=== PATIENT | male | born 1960 | race Caucasian/White ===

== ENCOUNTER 2021-12-02 12:36 | Outpatient (CLI) | payer BC, SELFPAY ==
--- NOTE | 2021-12-02 12:48 | MR_ITS ---
WS: [id number] MRI LEFT KNEE HISTORY: ACUTE PAIN OF L KNEE COMPARISON: 10/24/2021 Anterior cruciate ligament: Mild mucoid degeneration. No tear. Posterior cruciate ligament: Intact. Medial collateral ligament: Increased T2 signal surrounding the MCL. Partial tear in the mid to dista l MCL. Posterior lateral corner structures: Intact. Medial menisci: Intrasubstance degeneration in the posterior horn with a tear extending to the inferi or articular surface. There is also a radial tear through the body of the meniscus. Lateral meniscus: Intact. Normal signal, size and shape. Extensor mechanism: Distal quadriceps tendon and patellar tendons are intact. Fluid and soft tissue: Small suprapatellar joint effusion. No López's cyst. Osseous and articular structures: Patellofemoral compartment: Mild chondromalacia in the medial patellar facet. Medial compartment: Mild narrowing of the medial compartment. Small amount of marrow edema in the tib ial plateau. Moderate chondromalacia along the weightbearing surface of the femoral condyle and tibia l plateau. Lateral compartment: Mild narrowing of the joint space. Mild chondromalacia weightbearing surface tib ial plateau. MR/MR knee LT wo con* [id number] IMPRESSION: 1. Moderate sprain MCL. 2. Intrasubstance degeneration throughout the posterior horn medial meniscus w ith a radial tear in the body and an additional horizontal tear suspected exten ding to the intra-articular surface. 3. Small joint effusion. 4. Moderate chondromalacia medial compartment with a small amount of marrow ed javier in the medial tibial plateau. 5. Mild chondromalacia medial patellar facet and lateral tibial plateau.
== END 2021-12-02 12:37 | disposition home or self-care (01) ==
LOC: RAD 12:36
PROVIDERS: PCP Nurse Practitioner Family; Visit Provider Nurse Practitioner Family
DX: S83.512A Sprain of anterior cruciate ligament of left knee, initial encounter (principal); S83.282A Other tear of lateral meniscus, current injury, left knee, initial encounter; M22.42 Chondromalacia patellae, left knee; X58.XXXA Exposure to other specified factors, initial encounter
CPT/HCPCS: 73721

== ENCOUNTER → 2024-07-30 12:34 | Outpatient (BNVA) | payer OTHER, SELFPAY | PROVIDERS: PCP Nurse Practitioner Family; Visit Provider Emergency Medicine | DX: R39.9 Unspecified symptoms and signs involving the genitourinary system (principal) | CPT/HCPCS: 81000 ==

== ENCOUNTER 2025-01-24 12:11 | Emergency (ER) | payer OTHER, SELFPAY ==
[2025-01-24 12:22] VITALS: BP 146/94; PULSE 92; RESP 16; TEMP 36.5; O2SAT 98; BMI 31.3
--- NOTE | 2025-01-24 12:35 | ED_ITS ---
HPI - GI Bleed 2 General: Chief complaint: GI Bleed Stated complaint: blood in stool Time Seen by Provider: 01/24/25 12:25 Source: patient Mode of arrival: ambulatory Limitations: no limitations History of Present Illness: Patient is a 64-year-old male who presents to ED today with a complaint of rectal bleeding that he began noticing yesterday and into today. He states bleeding is minimal and a combination of bright red and dark red blood. He is not having any rectal pain. No abdominal pain. He does have a history of diverticulitis as well as hemorrhoids. He has never had to have treatment for his hemorrhoids. He is not complaining of rectal itching. Last colonoscopy was 10 years ago. He has had a Cologuard test within the last several years. He has not noticed any masses or bulges near his rectum. MD complaint: blood streaked stool Onset (ago): day(s) Severity: mild Relieving factors: none Exacerbating factors: bowel movement Context: hemorrhoids Associated symptoms: Reports no associated symptoms; Denies abdominal pain, chills, fever(s), malaise, nausea or vomiting Treatments Prior to Arrival: none Related Data Previous Rx's ?Medication ?Instructions ?Recorded amoxicillin 875 mg-potassium 1 tab PO BID 10 days #20 tabs 07/30/24 clavulanate 125 mg tablet ondansetron HCl 8 mg tablet 8 mg PO Q8H PRN nausea and /or 07/30/24 vomiting #30 tabs Allergies Allergy/AdvReac Type Severity Reaction Status Date / Time No Known Allergies Allergy Verified 07/30/24 11:41 Review of Systems 2 Const: Denies: fever(s), chills, body aches, fatigue or malaise Card: Denies: chest pain Resp: Denies: dyspnea GI: Reports: hematochezia; Denies: abdominal pain, nausea, vomiting, diarrhea, constipation, GI cramping or melena : Denies: flank pain, dysuria or hematuria Musc: Denies: back pain Neuro: Denies: dizziness PFSH ED 2 PFSH: Social History Smoking and tobacco/nicotine status: never used tobacco/nicotine Alcohol intake: never Substance/Drug Use: never Physical Exam 2 Const: COMMON NORMALS: no acute distress, average body habitus, no limitations, healthy appearing, alert and well nourished Resp: COMMON NORMALS: normal respiratory effort and clear to auscultation bilaterally AUSCULTATION: clear to auscultation bilaterally Cardio: COMMON NORMALS: regular rate and regular rhythm RATE: regular rate RHYTHM: regular rhythm GI: COMMON NORMALS: Normal to inspection, nondistended, normoactive bowel sounds present, Soft to palpation, non-tender, No hepatosplenomegaly present and no masses INSPECTION: Yes normal to inspection AUSCULTATION: Yes normoactive bowel sounds PALPATION: Yes Soft to palpation, No Tenderness to palpation present (GI), No Guarding due to palpation present (GI), No Rigid due to palpation and Yes No hepatosplenomegaly present RECTAL EXAM: Yes visual inspection normal, Yes heme positive stool, No hemorrhoids and No Anal fissure(s) present Neuro: SENSORIUM/ORIENTATION: Yes alert Course 2 Vital Signs: Vital signs: Vital Signs Temperature 97.7 F 01/24/25 12:22 Pulse Rate 79 01/24/25 12:59 Respiratory Rate 16 01/24/25 12:22 Blood Pressure 134/88 01/24/25 12:59 Pulse Oximetry 96 01/24/25 12:59 Oxygen Delivery Me thod Room Air 01/24/25 12:22 MDM - GI Bleed Medical Decision Making Patient's vital signs are stable. H&H is normal. Hemoccult was positive. Patient is not complaining of any abdominal or rectal pain. I do not see any reason for emergent CT imaging at this time. Recommend he follow-up with general surgery for further evaluation of rectal bleeding. Return ED precautions discussed. Differential Diagnosis Likely hemorrhoids, Lower gastrointestinal hemorrhage, hematochezia, melena and anal fissure Medical Records I reviewed the patient's medical records. Lab Data I reviewed the patient's lab results. 01/24/25 12:01/24/25 12:33 Laboratory Results WBC 7.00 10^3/uL (3.29-11.43) 01/24/25 12: RBC 4.13 10^6/uL (3.85-5.65) 01/24/25 12:33 Hgb 12.70 g/dL (11.27-16.99) 01/24/25 12:33 Hct 37.9 % (37-53) 01/24/25 12: MCV 91.8 fl (82-101) 01/24/25 12: MCH 30.8 pg (27-33) 01/24/25 12:33 MCHC 33.5 g/dL (30-55) 01/24/25 12:33 RDW 13.4 % (12.1-15.1) 01/24/25 12:33 Plt Count 160 10^3/cmm (157-399) 01/24/25 12:33 MPV 10.2 fL (7.4-10.4) 01/24/25 12:33 Neut % (Auto) 52.7 % 01/24/25 12:33 Lymph % (Auto) 35.4 % 01/24/25 12:33 [place] % (Auto) 5.4 % 01/24/25 12:33 Eos % (Auto) 5.1 % 01/24/25 12:33 Baso % (Auto) 1.1 % 01/24/25 12:33 Neut # (Auto) 3.68 10^3/uL (1.8-7.7) 01/24/25 12:33 Lymph # (Auto) 2.5 10^3/uL (0.8-4.8) 01/24/25 12:33 [place] # (Auto) 0.4 10^3/uL (0.2-0.9) 01/24/25 12:33 Eos # (Auto) 0.4 10^3/uL (0.0-0.8) 01/24/25 12:33 Baso # (Auto) 0.1 10^3/uL (0.0-0.1) 01/24/25 12:33 Nucleated RBC % (auto) 0 % 01/24/25 12:33 Nucleated RBCs # 0.0 /100WBC 01/24/25 12:33 Sodium 138 mmol/L (136-145) 01/24/25 12:33 Potassium 4.3 mmol/L (3.5-5.1) 01/24/25 12:33 Chloride 106 mmol/L (98-107) 01/24/25 12:33 Carbon Dioxide 24 mmol/L (22-29) 01/24/25 12:33 Anion Gap 12.3 (5-19) 01/24/25 12:33 BUN 20 mg/dL (8-23) 01/24/25 12:33 Creatinine 0.8 mg/dL (0.7-1.2) 01/24/25 12:33 GFR Calculation 97.6 mL/min (90-130) 01/24/25 12:33 Glucose 108 mg/dL (65-115) 01/24/25 12:33 Calculated Osmolality 289 mOsm/kg (285-295) 01/24/25 12:33 Calcium 8.7 mg/dL (8.5-10.5) 01/24/25 12:33 Total Bilirubin 0.2 mg/dL (0.15-1.2) 01/24/25 12:33 AST 10 U/L (0-40) 01/24/25 12:33 ALT 10 U/L (0-41) 01/24/25 12:33 Alkaline Phosphatase 77 U/L (40-130) 01/24/25 12:33 Total Protein 6.8 g/dL (6.6-8.7) 01/24/25 12:33 Albumin 4.4 g/dL (3.5-5.2) 01/24/25 12:33 Globulin 2.4 g/dL (1.3-4.6) 01/24/25 12:33 No radiology studies performed this visit Discharge Plan Discharge Patient Disposition: Home Clinical Impression: Rectal bleeding Condition: Stable Prescriptions: No Action amoxicillin-pot clavulanate 875-125 mg tablet 1 tab PO BID 10 Days Qty: 20 0RF ondansetron HCl 8 mg tablet 8 mg PO Q8H PRN (Reason: nausea and/or vomiting) Qty: 30 1RF Discharge Orders: Discharge ED (Routine); Ordered 01/24/25 Ordered By: Bell Sharma Referrals: Martha Nicholas MD [Primary Care Provider, Internal Medicine] Patient Instructions: Patient Portal & Gretel Instructions Activity Restrictions/Additional Instructions: As we discussed, we will have you follow-up with general surgery for further evaluation of rectal bleeding and potential need for repeat colonoscopy. You may return to the emergency department for onset of severe abdominal pain, fevers, generally feeling worse or unwell, or amounts of rectal bleeding, or any other concerns you may have. Print Language: Bruneian Coding Level of Care Code ED Technical Support Professional for Gia Hinds
[2025-01-24 12:42] LABS: Hematocrit 37.9 % (37-53); Hemoglobin 12.70 g/dL (11.27-16.99); Mean Corpuscular HGB Conc 33.5 g/dL (30-55); Mean Corpuscular Hemoglobin 30.8 pg (27-33); Mean Corpuscular Volume 91.8 fl (82-101); Nucleated Red Blood Cells % 0 %; Platelet Count 160 10^3/cmm (157-399); Red Blood Count 4.13 10^6/uL (3.85-5.65); White Blood Count 7.00 10^3/uL (3.29-11.43)
[2025-01-24 12:55] LABS: Alanine Aminotransferase 10 U/L (0-41); Albumin Level 4.4 g/dL (3.5-5.2); Alkaline Phosphatase 77 U/L (40-130); Anion Gap 12.3 (5-19); Aspartate Amino Transferase 10 U/L (0-40); Blood Urea Nitrogen 20 mg/dL (8-23); Calcium 8.7 mg/dL (8.5-10.5); Carbon Dioxide 24 mmol/L (22-29); Chloride 106 mmol/L (98-107); Globulin 2.4 g/dL (1.3-4.6); Glucose 108 mg/dL (65-115); Osmolality Calculated 289 mOsm/kg (285-295); Potassium 4.3 mmol/L (3.5-5.1); Sodium 138 mmol/L (136-145); Total Protein 6.8 g/dL (6.6-8.7)
[2025-01-24 12:59] VITALS: BP 134/88; PULSE 79; O2SAT 96
--- NOTE | 2025-01-27 07:35 | DCPLANNER ---
messaged gen surg for er f/u
== END 2025-01-24 13:02 | disposition home or self-care (01) ==
PROVIDERS: Emergency Medicine; Emergency Provider Physician Assistant; PCP Internal Medicine
DX: K62.5 Hemorrhage of anus and rectum (principal)
CPT/HCPCS: 36415; 80053; 85025; 99283